=== PATIENT | male | born 1960 | race Caucasian/White ===

== ENCOUNTER → 2016-09-24 | Outpatient (CLI) | payer BC, OTHER | END | disposition home or self-care (01) | LOC: RAD 16:42 | PROVIDERS: ATTEND Neurological Surgery | DX: M47.897 Other spondylosis, lumbosacral region (principal); M48.07 Spinal stenosis, lumbosacral region; M51.25 Other intervertebral disc displacement, thoracolumbar region; M51.26 Other intervertebral disc displacement, lumbar region; M54.17 Radiculopathy, lumbosacral region | CPT/HCPCS: 72148 ==

== ENCOUNTER 2016-10-02 11:04 | Inpatient (IN) | payer OTHER, BC ==
[~2016-10-02] VITALS: Ht 182.9 cm; Wt 129.6 kg
[~2016-10-02 11:04] MED LIST: BACITRACIN 50,000 UNIT ONE; BUPIVACAINE/PF 0.25% ONE; BUPIVACAINE/PF-EPI 0.5% 1:200K ONE; THROMBIN 5,000 UNIT VIAL TP ONE
[2016-10-02 11:49] VITALS: BP 143/92
[2016-10-02] MEDS ORDERED: GLIM4TAB2 PO (11:55)
[2016-10-02] MEDS ORDERED: LEVO50TA PO (11:55)
[2016-10-02] MEDS ORDERED: BENA1TAB9 PO (11:55)
[2016-10-02] MEDS ORDERED: CETI10TA32 PO (11:55)
[2016-10-02] MEDS ORDERED: DULA1.5P SQ (11:55)
[2016-10-02] MEDS ORDERED: METF10002 PO (11:55)
[2016-10-02] MEDS ORDERED: TAMS-11 PO (11:55)
[2016-10-02] MEDS ORDERED: FINA5TAB4 PO (11:55)
[2016-10-02] MEDS ORDERED: DEXL60CA PO (11:55)
[2016-10-02] MEDS ORDERED: FLUT9.9S NS (11:55)
[2016-10-02] MEDS ORDERED: CELE100C PO (11:55)
[2016-10-02] MEDS ORDERED: INSU300I SQ (11:55)
[2016-10-02] MEDS ORDERED: LACTATED RINGERS 1,000 ML IV SCH (11:56)
[2016-10-02] MEDS ORDERED: LIDOCAINE 1%, 2ML ONE (11:58)
[2016-10-02] MEDS ORDERED: LIDOCAINE 1%, 2ML SQ PRN (12:00)
[2016-10-02] MEDS ORDERED: SUFentanil 50 MCG/ML, 1ML ONE (12:26)
[2016-10-02] MEDS ORDERED: FENTANYL PF 100 MCG/2ML ONE ×3 (12:26→15:09)
[2016-10-02] MEDS ORDERED: ONDANSETRON 2MG/ML, 2ML ONE (12:34)
[2016-10-02] MEDS ORDERED: PROPOFOL 10 MG/ML, 20ML ONE (12:34)
[2016-10-02] MEDS ORDERED: PROPOFOL 10 MG/ML, 50ML ONE (12:34)
[2016-10-02] MEDS ORDERED: SUCCINYLCHOLINE 20 MG/ML, 10ML ONE (12:34)
[2016-10-02] MEDS ORDERED: ROCURONIUM 10 MG/ML ONE (12:34)
[2016-10-02] MEDS ORDERED: CEFAZOLIN 1,000 MG ONE (12:34)
[2016-10-02] MEDS ORDERED: BUPIVACAINE/PF-EPI 0.5% 1:200K INFIL ONE (13:40)
[2016-10-02] MEDS ORDERED: INSULIN REGULAR 100 UNITS/ML, 3ML VIAL SQ-INSULIN PRN (14:30)
[2016-10-02] MEDS ORDERED: morphine SULFATE 10 MG/ML, 1ML IVPush PRN (14:30)
[2016-10-02] MEDS ORDERED: BISACODYL 10 MG SUPP PR PRN (14:30)
[2016-10-02] MEDS ORDERED: SENNA/DOCUSATE TABLET PO PRN (14:30)
[2016-10-02] MEDS ORDERED: [UNRECOGNIZED DRUG - OTHER] SQ SCH (14:30)
[2016-10-02] MEDS ORDERED: OXYcodone/APAP 5/325MG TABLET PO PRN (14:30)
[2016-10-02] MEDS ORDERED: PROMETHAZINE 25 MG/ML, 1ML IM PRN (14:30)
[2016-10-02] MEDS ORDERED: HYDROcodone/APAP 5/325 TABLET PO PRN (14:30)
[2016-10-02] MEDS ORDERED: PHARMACY MAY ADJ FOR RENAL FX MC PRN (14:30)
[2016-10-02] MEDS ORDERED: DIPHENHYDRAMINE 50 MG/ML, 1ML IVPush PRN (14:30)
[2016-10-02] MEDS ORDERED: ONDANSETRON 2MG/ML, 2ML IVPush PRN ×2 (14:30→15:30)
[2016-10-02] MEDS ORDERED: ALBUTEROL SULFATE 2.5 MG/3 ML ONE (14:58)
[2016-10-02] MEDS: FENTANYL PF 100 MCG/2ML IV PRN ×2 (15:10→15:20)
[2016-10-02] MEDS ORDERED: HYDROmorphone 1 MG/ML, 1ML ONE (15:26)
[2016-10-02] MEDS ORDERED: HYDROmorphone 1 MG/ML, 1ML IV PRN (15:30)
[2016-10-02] MEDS ORDERED: ALBUTEROL/IPRATROPIUM 2.5MG/0.5MG, 3 ML NPPB PRN (15:30)
[2016-10-02] MEDS ORDERED: OXYcodone 5 MG/5 ML ORAL.SOL UDC PO PRN (15:30)
[2016-10-02] MEDS ORDERED: ACETAMINOPHEN 325 MG TABLET PO PRN (15:30)
[2016-10-02] MEDS ORDERED: MIDAZOLAM 1 MG/ML, 2ML IV PRN (15:30)
[2016-10-02 16:15] VITALS: BP 129/87
[2016-10-02] MEDS: NS + 20MEQ KCL 1,000 ML IV SCH (17:09)
[2016-10-02 18:54] VITALS: BP 120/78
[2016-10-02] MEDS: CEFAZOLIN PMX 1GM/50ML 50 ML IVPB SCH (21:21)
[2016-10-02] MEDS: SODIUM CHLORIDE FLUSH 10ML SYR IVF SCH (21:22)
[2016-10-02] MEDS: TAMSULOSIN 0.4 MG CAP.ER.24H PO SCH (21:22)
[2016-10-02] MEDS: GLIMEPIRIDE 4 MG TABLET PO SCH (21:22)
[2016-10-02] MEDS: INSULIN GLARGINE HUM REC ANLOG SQ SCH (21:22)
[2016-10-02] MEDS: CYCLOBENZAPRINE 10 MG TABLET PO PRN (21:35)
[2016-10-02] MEDS: HYDROcodone/APAP 10/325 MG TABLET PO PRN (21:35)
[2016-10-03 00:25] VITALS: BP 104/71
[2016-10-03] MEDS: HYDROcodone/APAP 10/325 MG TABLET PO PRN ×4 (01:37→18:40)
[2016-10-03 03:59] VITALS: BP 99/64
[2016-10-03] MEDS: CEFAZOLIN PMX 1GM/50ML 50 ML IVPB SCH (05:28)
[2016-10-03] MEDS: CYCLOBENZAPRINE 10 MG TABLET PO PRN (05:41)
[2016-10-03] MEDS: NS + 20MEQ KCL 1,000 ML IV SCH (05:55)
[2016-10-03 07:25] VITALS: BP 96/61
[2016-10-03] MEDS: metFORMIN 500 MG TABLET PO SCH (08:39)
[2016-10-03] MEDS: OMEPRAZOLE 20 MG CAPSULE.DR PO SCH (08:39)
[2016-10-03] MEDS: LEVOTHYROXINE 50 MCG TABLET PO SCH (08:40)
[2016-10-03] MEDS: HYDROCHLOROTHIAZIDE 12.5 MG CAPSULE PO SCH (08:40)
[2016-10-03] MEDS: BENAZEPRIL 10 MG TABLET PO SCH (08:40)
[2016-10-03] MEDS: FINASTERIDE 5 MG TABLET PO SCH (08:40)
[2016-10-03] MEDS: GLIMEPIRIDE 4 MG TABLET PO SCH ×2 (08:40→22:15)
[2016-10-03] MEDS: TAMSULOSIN 0.4 MG CAP.ER.24H PO SCH ×2 (08:41→22:15)
[2016-10-03 08:44] VITALS: BP 101/65
[2016-10-03] MEDS: CETIRIZINE 10 MG TABLET PO SCH (09:00)
[2016-10-03] MEDS: SODIUM CHLORIDE FLUSH 3ML SYRINGE IVF SCH ×2 (09:00→21:00)
[2016-10-03] MEDS: [UNRECOGNIZED DRUG - REMARK] NS SCH (09:00)
[2016-10-03] MEDS: SODIUM CHLORIDE FLUSH 10ML SYR IVF SCH ×2 (09:00→22:15)
[2016-10-03 13:27] VITALS: BP 114/74
[2016-10-03 19:19] VITALS: BP 134/79
[2016-10-03] MEDS: INSULIN GLARGINE HUM REC ANLOG SQ SCH (21:00)
[2016-10-04] MEDS: HYDROcodone/APAP 10/325 MG TABLET PO PRN ×2 (00:55→18:41)
[2016-10-04 01:30] VITALS: BP 120/71
[2016-10-04 07:13] VITALS: BP 123/79
[2016-10-04] MEDS: CETIRIZINE 10 MG TABLET PO SCH (07:44)
[2016-10-04] MEDS: metFORMIN 500 MG TABLET PO SCH (07:44)
[2016-10-04] MEDS: OMEPRAZOLE 20 MG CAPSULE.DR PO SCH (07:45)
[2016-10-04] MEDS: GLIMEPIRIDE 4 MG TABLET PO SCH ×2 (07:45→20:19)
[2016-10-04] MEDS: TAMSULOSIN 0.4 MG CAP.ER.24H PO SCH ×2 (07:45→20:19)
[2016-10-04] MEDS: HYDROCHLOROTHIAZIDE 12.5 MG CAPSULE PO SCH (07:45)
[2016-10-04] MEDS: BENAZEPRIL 10 MG TABLET PO SCH (07:45)
[2016-10-04] MEDS: FINASTERIDE 5 MG TABLET PO SCH (07:45)
[2016-10-04] MEDS: LEVOTHYROXINE 50 MCG TABLET PO SCH (07:45)
[2016-10-04] MEDS: [UNRECOGNIZED DRUG - REMARK] NS SCH (07:47)
[2016-10-04] MEDS: SODIUM CHLORIDE FLUSH 10ML SYR IVF SCH ×2 (07:47→20:19)
[2016-10-04] MEDS: SODIUM CHLORIDE FLUSH 3ML SYRINGE IVF SCH ×2 (07:47→20:20)
[2016-10-04 13:22] VITALS: BP 93/62
[2016-10-04 18:32] VITALS: BP 115/71
[2016-10-04] MEDS: INSULIN GLARGINE HUM REC ANLOG SQ SCH (21:00)
[2016-10-05 02:02] VITALS: BP 124/82
[2016-10-05] MEDS: HYDROcodone/APAP 10/325 MG TABLET PO PRN ×2 (02:31→12:28)
[2016-10-05] MEDS: OMEPRAZOLE 20 MG CAPSULE.DR PO SCH (06:48)
[2016-10-05 08:12] VITALS: BP 99/64
[2016-10-05] MEDS ORDERED: MAGNESIUM CITRATE 300ML ORAL SOL PO ONE (08:30)
[2016-10-05] MEDS: SODIUM CHLORIDE FLUSH 3ML SYRINGE IVF SCH (09:00)
[2016-10-05] MEDS: [UNRECOGNIZED DRUG - REMARK] NS SCH (09:00)
[2016-10-05] MEDS: SODIUM CHLORIDE FLUSH 10ML SYR IVF SCH (09:14)
[2016-10-05] MEDS: TAMSULOSIN 0.4 MG CAP.ER.24H PO SCH (09:15)
[2016-10-05] MEDS: CETIRIZINE 10 MG TABLET PO SCH (09:15)
[2016-10-05] MEDS: GLIMEPIRIDE 4 MG TABLET PO SCH (09:15)
[2016-10-05] MEDS: metFORMIN 500 MG TABLET PO SCH (09:16)
[2016-10-05] MEDS: FINASTERIDE 5 MG TABLET PO SCH (09:18)
[2016-10-05] MEDS: BENAZEPRIL 10 MG TABLET PO SCH (09:18)
[2016-10-05] MEDS: HYDROCHLOROTHIAZIDE 12.5 MG CAPSULE PO SCH (09:18)
[2016-10-05] MEDS: LEVOTHYROXINE 50 MCG TABLET PO SCH (09:19)
[2016-10-05 09:20] VITALS: BP 115/76
[2016-10-05] MEDS ORDERED: HYDR-3307 PO (10:40)
[2016-10-05] MEDS ORDERED: CYCL-259 PO (10:41)
[2016-10-05] MEDS ORDERED: CEPH500T PO (10:42)
[2016-10-05] MEDS: CYCLOBENZAPRINE 10 MG TABLET PO PRN (12:30)
[2016-10-05] MEDS ORDERED: MAGNESIUM CITRATE 300ML ORAL SOL PO PRN (12:30)
== END 2016-10-05 13:00 | disposition home or self-care (01) | DRG 517 ==
LOC: ORIP 11:04 → 4NOR 16:18
PROVIDERS: ADMIT Neurological Surgery; ATTEND Neurological Surgery
PROC: 4A11X4G Monitoring of Peripheral Nervous Electrical Activity, Intraoperative, External Approach (ICD-10-PCS; 2016-10-02)
PROC: 01NB0ZZ Release Lumbar Nerve, Open Approach (ICD-10-PCS; principal; 2016-10-02 14:30)
DX: M48.06 Spinal stenosis, lumbar region (principal); M51.16 Intervertebral disc disorders with radiculopathy, lumbar region; E66.01 Morbid (severe) obesity due to excess calories; K21.9 Gastro-esophageal reflux disease without esophagitis; Z68.38 Body mass index [BMI] 38.0-38.9, adult
CPT/HCPCS: 72100; 82962; 94640; J0690; J1170; J2405; J2704; J3010; J3480; J3490; J7620; J0330; J7120